=== PATIENT | female | born 2000 | race American Indian/Alaskan Native ===

== ENCOUNTER 2021-09-24 21:31 | Emergency (ER) | payer SELFPAY ==
--- NOTE | 2021-09-24 22:11 | Emergency Department Report ---
HPI - General Chief Complaint: Overdose Time Seen by Provider: 09/24/21 21:59 - HPI HPI: Room 5 Patient is a 20-year-old female present with chief complaint of suicidal ideation. Patient states at approximately 1930 this evening she intentionally overdosed on a handful of Lexapro. Patient estimates it was between 5 to 10 pills 10 mg each. Patient denies any other coingestants. Patient currently denies complaints stating she feels indifferent. The patient states she told her parents about her actions who in turn called 911 ED Past Medical Hx - Past Medical History Hx Psychiatric Treatment: Yes (Autism, depression, generalized anxiety) - Surgical History Additional Surgical History: Tonsil and adenoidectomy, pneumatic equalization tubes, wisdom tooth extraction - Family History Family history: no significant - Social History Smoking Status: Never Smoker Substance Use Type: Alcohol (Occasional), Marijuana ED Review of Systems ROS: Stated complaint: MH POSS OD Other details as noted in HPI Constitutional: no symptoms reported Eyes: denies: eye pain ENT: denies: throat pain Respiratory: no symptoms reported Cardiovascular: denies: chest pain Endocrine: no symptoms reported Gastrointestinal: denies: abdominal pain Genitourinary: denies: dysuria Musculoskeletal: denies: back pain Neurological: denies: headache Psychiatric: suicidal thoughts Physical Exam - Physical Exam Vital Signs: Vital Signs 09/24/21 21:56 Temperature 98.1 F Pulse Rate 69 Respiratory 16 Rate Blood Pressure 116/70 [Right] O2 Sat by Pulse 100 Oximetry Vital Signs - 8 hr 09/24/21 09/25/21 21:56 05:47 Temperature 98.1 F 99.1 F Pulse Rate 69 72 Respiratory 16 16 Rate Blood Pressure 116/70 112/69 [Right] O2 Sat by Pulse 100 98 Oximetry Physical Exam: GENERAL: The patient is well-developed well-nourished female lying on stretcher not appearing to be in acute distress. [] HEENT: Normocephalic. Atraumatic. Extraocular motions are intact. Patient has moist mucous membranes. NECK: Supple. Trachea midline CHEST/LUNGS: Clear to auscultation. There is no respiratory distress noted. HEART/CARDIOVASCULAR: Regular. There is no tachycardia. There is no gallop rub or murmur. ABDOMEN: Abdomen is soft, nontender. Patient has normal bowel sounds. There is no abdominal distention. SKIN: There is no rash. There is no edema. There is no diaphoresis. NEURO: The patient is awake, alert, and oriented. The patient is cooperative. The patient has no focal neurologic deficits. The patient has normal speech. GCS 15 MUSCULOSKELETAL: There is no evidence of acute injury. ED Course Vital Signs 09/24/21 21:56 Temperature 98.1 F Pulse Rate 69 Respiratory 16 Rate Blood Pressure 116/70 [Right] O2 Sat by Pulse 100 Oximetry - Reevaluation(s) Reevaluation #1: 09/25/21 05:53 Patient remains asymptomatic - Consultations Consultation #1: 09/24/21 22:11 Poison control called 09/24/21 22:22 Case discussed with Joni. Recommends 8-hour observation in the ED. Symptomatic and supportive care. States Lexapro can lead to tachycardia, hypertension, agitation and seizures. Also observe for QTC widening. No spec ific cutoff given. The patient at baseline after 8-hour observation period, may be cleared for psych ED Medical Decision Making - Lab Data Result diagrams: 09/24/21 22:35 09/24/21 22:35 Laboratory Tests 09/24/21 09/24/21 09/24/21 22:35 22:35 22:35 WBC 4.3 L RBC 4.57 Hgb 13.4 Hct 40.8 MCV 89 MCH 29 MCHC 33 RDW 13.0 L Plt Count 270 Lymph % (Auto) 31.3 [place] % (Auto) 8.7 H Eos % (Auto) 2.1 Baso % (Auto) 0.4 Lymph # (Auto) 1.4 [place] # (Auto) 0.4 Eos # (Auto) 0.1 Baso # (Auto) 0.0 Seg Neutrophils % 57.5 Seg Neutrophils # 2.5 Sodium 140 Potassium 3.8 Chloride 104.8 Carbon Dioxide 24 Anion Gap 15 BUN 9 Creatinine 0.5 L Estimated GFR > 60 BUN/Creatinine Ratio 18 Glucose 85 Calcium 8.9 Total Bilirubin 0.40 AST 11 ALT 6 L Alkaline Phosphatase 81 Total Protein 7.0 Albumin 4.3 Albumin/Globulin Ratio 1.6 HCG, Qual Urine Color Urine Turbidity Urine pH Ur Specific [place] Urine Protein Urine Glucose (UA) Urine Ketones Urine Blood Urine Nitrite Ur Reducing Substances Urine Bilirubin Urine Ictotest Urine Urobilinogen Ur Leukocyte Esterase Urine WBC (Auto) Urine RBC (Auto) U Epithel Cells (Auto) Urine Bacteria (Auto) Urine Mucus Salicylates < 0.3 L Urine Opiates Screen Urine Methadone Screen Acetaminophen Ur Barbiturates Screen Ur Phencyclidine Scrn Ur Amphetamines Screen U Benzodiazepines Scrn Urine Cocaine Screen U Marijuana (THC) Screen Drugs of Abuse Note Plasma/Serum Alcohol 09/24/21 09/24/21 09/24/21 22:35 22:35 22:35 WBC RBC Hgb Hct MCV MCH MCHC RDW Plt Count Lymph % (Auto) [place] % (Auto) Eos % (Auto) Baso % (Auto) Lymph # (Auto) [facility] # (Auto) Eos # (Auto) Baso # (Auto) Seg Neutrophils % Seg Neutrophils # Sodium Potassium Chloride Carbon Dioxide Anion Gap BUN Creatinine Estimated GFR BUN/Creatinine Ratio Glucose Calcium Total Bilirubin AST ALT Alkaline Phosphatase Total Protein Albumin Albumin/Globulin Ratio HCG, Qual Negative Urine Color Urine Turbidity Urine pH Ur Specific [place] Urine Protein Urine Glucose (UA) Urine Ketones Urine Blood Urine Nitrite Ur Reducing Substances Urine Bilirubin Urine Ictotest Urine Urobilinogen Ur Leukocyte Esterase Urine WBC (Auto) Urine RBC (Auto) U Epithel Cells (Auto) Urine Bacteria (Auto) Urine Mucus Salicylates Urine Opiates Screen Urine Methadone Screen Acetaminophen 5.0 L Ur Barbiturates Screen Ur Phencyclidine Scrn Ur Amphetamines Screen U Benzodiazepines Scrn Urine Cocaine Screen U Marijuana (THC) Screen Drugs of Abuse Note Plasma/Serum Alcohol < 0.01 09/24/21 09/24/21 Unknown Unknown WBC RBC Hgb Hct MCV MCH MCHC RDW Plt Count Lymph % (Auto) [place] % (Auto) Eos % (Auto) Baso % (Auto) Lymph # (Auto) [facility] # (Auto) Eos # (Auto) Baso # (Auto) Seg Neutrophils % Seg Neutrophils # Sodium Potassium Chloride Carbon Dioxide Anion Gap BUN Creatinine Estimated GFR BUN/Creatinine Ratio Glucose Calcium Total Bilirubin AST ALT Alkaline Phosphatase Total Protein Albumin Albumin/Globulin Ratio HCG, Qual Urine Color Straw Urine Turbidity Hazy Urine pH 6.5 Ur Specific [place] 1.025 Urine Protein 30 mg/dl Urine Glucose (UA) Negative Urine Ketones Trace Urine Blood 2+ Urine Nitrite Negative Ur Reducing Substances Not Reportable Urine Bilirubin Negative Urine Ictotest Not Reportable Urine Urobilinogen 1.0 Ur Leukocyte Esterase Negative Urine WBC (Auto) 4.0 Urine RBC (Auto) 3.0 U Epithel Cells (Auto) 10.0 Urine Bacteria (Auto) 1+ Urine Mucus 2+ Salicylates Urine Opiates Screen Presumptive negative Urine Methadone Screen Presumptive negative Acetaminophen Ur Barbiturates Screen Presumptive negative Ur Phencyclidine Scrn Presumptive negative Ur Amphetamines Screen Presumptive negative U Benzodiazepines Scrn Presumptive negative Urine Cocaine Screen Presumptive negative U Marijuana (THC) Screen Presumptive positive Drugs of Abuse Note Disclamer Plasma/Serum Alcohol - EKG Data -: EKG Interpreted by Me EKG shows normal: sinus rhythm Rate: normal - EKG Data When compared to previous EKG there are: previous EKG unavailable Interpretation: nonspecific ST-T wave [place] (T wave inversion lead aVL) - Differential Diagnosis Suicidal ideation, Lexapro overdose Critical care attestation.: If time is entered above; I have spent that time in minutes in the direct care of this critically ill patient, excluding procedure time. ED Disposition Clinical Impression: Suicidal ideation Disposition: 30 STILL A PATIENT Is pt being admited?: No Does the pt Need Aspirin: No Condition: Fair Time of Disposition: 05:54 (Awaiting whit)
[2021-09-24 23:17] LABS: Basophils % (Auto) 0.4 % (0.0-1.8); Eosinophils # (Auto) 0.1 K/mm3 (0.0-0.4); Eosinophils % (Auto) 2.1 % (0.0-4.3); Hematocrit 40.8 % (30.3-42.9); Hemoglobin 13.4 gm/dl (10.1-14.3); Lymphocytes # (Auto) 1.4 K/mm3 (1.2-5.4); Lymphocytes % (Auto) 31.3 % (13.4-35.0); Mean Corpuscular HGB Conc 33 % (30-34); Mean Corpuscular Volume 89 fl (79-97); Monocytes # (Auto) 0.4 K/mm3 (0.0-0.8); Monocytes % (Auto) 8.7 % (0.0-7.3); Platelet Count 270 K/mm3 (140-440); Red Blood Count 4.57 M/mm3 (3.65-5.03)
[2021-09-24 23:27] LABS: Alanine Aminotransferase 6 units/L (7-56); Albumin 4.3 g/dL (3.9-5); BUN/Creatinine Ratio 18; Blood Urea Nitrogen 9 mg/dL (7-17); Calcium 8.9 mg/dL (8.4-10.2); Hemolysis Index 5
[2021-09-25 01:38] LABS: Amphetamine Screen,Urine PRESUMPTIVE NEGATIVE; Benzodiazepines Screen,Urine PRESUMPTIVE NEGATIVE; Cannabinoid Screen,Urine PRESUMPTIVE POSITIVE; Cocaine Screen,Urine PRESUMPTIVE NEGATIVE; Methadone Screen,Urine PRESUMPTIVE NEGATIVE; Opiate Screen,Urine PRESUMPTIVE NEGATIVE
[2021-09-25 01:46] LABS: Bacteria,Urine 1+ /HPF (Negative); Mucus,Urine 2+ /HPF
[2021-09-25 01:52] LABS: Bilirubin,Urine Negative (Negative); Blood,Urine 2+ (Negative); Color,Urine Straw (Yellow); PH,Urine 6.5 (5.0-7.0)
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
[2021-09-26 03:14] VITALS: BP 117/71
--- NOTE | 2021-09-26 10:58 | Electrocardiograph Report ---
[facility] Test Date: 2021-09-24 Test Time: 23:59:55 Pat Name: TAB TENA Department: Room: Gender: F Cnc Lathe Machine Operator: CLAIRE : 2000 Requested By: IBETH MENDEZ Order Number: [id number] Reading MD: Saulo Stephenson Measurements Intervals [place] Rate: 64 P: 72 CT: 172 QRS: 54 QRSD: 83 T: 60 QT: 404 QTc: 418 Interpretive Statements Sinus rhythm ST elev, probable normal early repol pattern No previous ECG available for comparison Electronically Signed On 09-26-2021 10:57:47 EDT by Saulo Stephenson
== END 2021-09-26 09:24 ==
LOC: ED 21:31 → EEVIPCON 21:31 → ED 09-26 09:24
DX: R45.851 Suicidal ideations (principal); F32.9 Major depressive disorder, single episode, unspecified; Z20.822 Contact with and (suspected) exposure to COVID-19; F41.9 Anxiety disorder, unspecified; F12.90 Cannabis use, unspecified, uncomplicated; Z72.89 Other problems related to lifestyle; Z79.899 Other long term (current) drug therapy
CPT/HCPCS: 36415; 80053; 80307; 81001; 84703; 85025; 93005; 99285; U0003; 80320; G0480